=== PATIENT | male | born 1960 | race African-American/Black ===

== ENCOUNTER 2017-12-08 15:50 | Emergency (ER) | payer MEDICARE ==
[2017-12-08] MEDS ORDERED: ASPIRIN 81 MG TABLET, CHEWABLE PO ONE (16:15)
--- NOTE | 2017-12-08 16:18 | ER Document Report ---
ED Medical Screen (RME) - General Chief Complaint: Flank Pain Stated Complaint: BACK PAIN Time Seen by Provider: 12/08/17 16:08 TRAVEL OUTSIDE OF THE [place] IN LAST 30 DAYS: No - HPI Patient complains to provider of: Chest pain Onset: Other - 49-year-old male with multiple medical comorbidities including hyperlipidemia hypertension diabetes a presents for evaluation of exertional left-sided chest pain while he was clearing trees. He notes that during that time he had intense pain, the pain has waxed and waned since that time but gets better with rest. He is never had anything like this in the past except for 3 years ago when he was told that he had an effusion in his chest as well as double pneumonia. - Related Data Allergies/Adverse Reactions: No Known Allergies Allergy (Unverified 12/08/17 15:53) Past Medical History - Social History Chew tobacco use (# tins/day): No Frequency of alcohol use: None Drug Abuse: None - Past Medical History Cardiac Medical History: Reports: Hx Hypercholesterolemia, Hx Hypertension Endocrine Medical History: Reports: Hx Diabetes Mellitus Type 2 Renal/ Medical History: Denies: Hx Peritoneal Dialysis Physical Exam - Vital signs Vitals: Temp Pulse Resp BP Pulse Ox 97.7 F 85 18 126/74 H 100 12/08/17 15:56 12/08/17 15:56 12/08/17 15:56 12/08/17 15:56 12/08/17 15:56 Course - Re-evaluation Re-evalutation: 12/08/17 16:17 This is a gentleman with multiple medical comorbidities and exertional chest pain on the left side. Given the concern for potential developing anginal equivalent or cardiac etiology will initiate cardiac workup. We will obtain 2 view chest x-ray. We will plan for monitoring and further investigation.I performed a rapid medical screening examination on this patient will defer further disposition determination workup and labs to next provider. - Vital Signs Vital signs: Temp Pulse Resp BP Pulse Ox 97.7 F 85 18 126/74 H 100 12/08/17 15:56 12/08/17 15:56 12/08/17 15:56 12/08/17 15:56 12/08/17 15:56
[2017-12-08 16:44] LABS: ABSOLUTE LYMPHOCYTES (AUTO) 2.6 10^3/uL (0.5-4.7); ABSOLUTE MONOCYTES (AUTO) 0.4 10^3/uL (0.1-1.4); ABSOLUTE NEUT (AUTO) 3.9 10^3/uL (1.7-8.2); BASOPHILS % (AUTO) 0.4 % (0-2); EOSINOPHILS % (AUTO) 0.7 % (0-6); HEMOGLOBIN 15.4 g/dL (13.5-17.0); LYMPHOCYTES % (AUTO) 37.7 % (13-45); MEAN CORPUSCULAR HEMOGLOBIN 31.6 pg (27.0-33.4); MEAN CORPUSCULAR HGB CONC 34.3 g/dL (32.0-36.0); MEAN CORPUSCULAR VOLUME 92 fl (80-97); MONOCYTES % (AUTO) 6.1 % (3-13); PLATELET COUNT 231 10^3/uL (150-450); RED BLOOD COUNT 4.89 10^6/uL (4.35-5.55); RED CELL DISTRIBUTION WIDTH 13.1 % (11.5-14.0); SEGMENTED NEUTROPHILS % (AUTO) 55.1 % (42-78); TOTAL CELLS COUNTED % (AUTO) 100 %
[2017-12-08 16:59] LABS: ALANINE AMINOTRANSFERASE 63 U/L (21-72); ALBUMIN 4.5 g/dL (3.5-5.0); ALKALINE PHOSPHATASE 63 U/L (38-126); ANION GAP 10 (5-19); ASPARTATE AMINO TRANSFERASE 56 U/L (17-59); BILIRUBIN,DIRECT 0.3 mg/dL (0.0-0.4); BILIRUBIN,TOTAL 0.6 mg/dL (0.2-1.3); BLOOD UREA NITROGEN 15 mg/dL (7-20); CALCIUM 10.3 mg/dL (8.4-10.2); CARBON DIOXIDE 29 mmol/L (22-30); CHLORIDE 102 mmol/L (98-107); CREATINE KINASE 297 U/L (55-170); GLUCOSE 104 mg/dL (75-110); POTASSIUM 4.4 mmol/L (3.6-5.0); SODIUM 140.8 mmol/L (137-145); TOTAL PROTEIN 7.7 g/dL (6.3-8.2)
[2017-12-08 17:08] LABS: CREATINE KINASE MB 1.39 ng/mL (<4.55)
[2017-12-08 17:09] LABS: TROPONIN I < 0.012 ng/mL
--- NOTE | 2017-12-08 17:19 | RADIOLOGY REPORT (SQ) ---
EXAM DESCRIPTION: CHEST 2 VIEWS COMPLETED DATE/TIME: 12/08/2017 4:58 pm REASON FOR STUDY: pain in left chest COMPARISON: None. EXAM PARAMETERS: NUMBER OF VIEWS: two views TECHNIQUE: Digital Frontal and Lateral radiographic views of the chest acquired. RADIATION DOSE: NA LIMITATIONS: none FINDINGS: LUNGS AND PLEURA: Density projected over the right 1st rib probably represents calcificati on at the costochondral junction however no previous chest x-rays for comparison. Recommend apical l ordotic view for confirmation. Lungs otherwise clear. MEDIASTINUM AND HILAR STRUCTURES: No masses or contour abnormalities. HEART AND VASCULAR STRUCTURES: Heart normal size. No evidence for failure. BONES: No acute findings. HARDWARE: None in the chest. OTHER: No other significant finding. IMPRESSION: Right upper lobe density. See above discussion. Recommend apical lordotic projection. TECHNICAL DOCUMENTATION: JOB ID: [id number] [employer]- All Rights Reserved Reading location - IP/workstation name: [email or web address]
[2017-12-08 17:34] LABS: APPEARANCE,URINE SLIGHTLY-CLOUDY; BILIRUBIN,URINE NEGATIVE (NEGATIVE); CALCIUM OXALATE CRYSTALS,URINE RARE /HPF; COLOR,URINE YELLOW; GLUCOSE, URINE NEGATIVE (NEGATIVE); KETONES,URINE NEGATIVE (NEGATIVE); LEUKOCYTE ESTERASE,URINE NEGATIVE (NEGATIVE); NITRITE,URINE NEGATIVE (NEGATIVE); PROTEIN,URINE NEGATIVE (NEGATIVE); URINE SPECIFIC GRAVITY 1.025
[2017-12-08] MEDS ORDERED: NORMAL SALINE 1000 ML 1,000 ML IV ONE (17:41)
[2017-12-08] MEDS ORDERED: KETOROLAC TROMETHAMINE INJ/PF 30 MG/1 ML SDV IV ONE (17:41)
--- NOTE | 2017-12-08 18:11 | RADIOLOGY REPORT (SQ) ---
EXAM DESCRIPTION: CT ABD/PELVIS NO ORAL OR IV COMPLETED DATE/TIME: 12/08/2017 5:58 pm REASON FOR STUDY: left flank pain COMPARISON: None. TECHNIQUE: CT scan of the abdomen and pelvis performed without intravenous or oral contrast. Images reviewed with lung, soft tissue, and bone windows. Reconstructed coronal and sagittal MPR images revi ewed. All images stored on PACS. All CT scanners at this facility use dose modulation, iterative reconstruction, and/or weight based d osing when appropriate to reduce radiation dose to as low as reasonably achievable (ALARA). [facility]: Dose Right [facility]: CareDose [facility]: Dose Right [facility]: Teradose 4D [facility]: Smart DataProm RADIATION DOSE: CT Rad equipment meets quality standard of care and radiation dose reduction techniq ues were employed. CTDIvol: 19.9 mGy. DLP: 1125 mGy-cm.mGy. LIMITATIONS: None. FINDINGS: LOWER CHEST: No significant findings. No nodules or infiltrates. NON-CONTRASTED LIVER, SPLEEN, ADRENALS: Evaluation limited by lack of IV contrast. No identified sign ificant masses. PANCREAS: No masses. No peripancreatic inflammatory changes. GALLBLADDER: No identified stones by CT criteria. No inflammatory changes to suggest cholecystitis. RIGHT KIDNEY AND URETER: No suspicious masses. Assessment limited by lack of IV contrast. No signif icant calcifications. No hydronephrosis or hydroureter. LEFT KIDNEY AND URETER: No suspicious masses. Assessment limited by lack of IV contrast. There is a tiny nonobstructing lower calyceal calculus. No hydronephrosis or hydroureter. AORTA AND RETROPERITONEUM: No aneurysm. No retroperitoneal masses or adenopathy. BOWEL AND PERITONEAL CAVITY: Descending and sigmoid diverticulosis with no acute inflammation. No danielle wel masses. APPENDIX: Normal. PELVIS, BLADDER, AND ABDOMINAL WALL:No abnormal masses. No free fluid. Bladder normal. BONES: No significant findings. OTHER: No other significant finding. IMPRESSION: Small nonobstructing left lower calyceal calculus. Diverticulosis coli. No acute findi ngs in the abdomen or pelvis. COMMENT: Quality ID # [id number]: Final reports with documentation of one or more dose reduction techniques (e.g., Automated exposure control, adjustment of the mA and/or kV according to patient size, use of iterative reconstruction technique) TECHNICAL DOCUMENTATION: JOB ID: [id number]- All Rights Reserved Reading location - IP/workstation name: [email or web address]
--- NOTE | 2017-12-08 18:16 | EKG REPORT ---
SEVERITY:- NORMAL ECG - SINUS RHYTHM : Confirmed by: Marianna Espino MD 08-Dec-2017 18:16:26
[2017-12-08] MEDS ORDERED: HYDROCODONE/ACETAMINOPHEN 5-325 MG (6 TAB/ER DISP) PO PRN (18:21)
--- NOTE | 2017-12-08 18:22 | ER Document Report ---
ED General - General Chief Complaint: Flank Pain Stated Complaint: BACK PAIN Time Seen by Provider: 12/08/17 16:08 Notes: Patient is a 57-year-old male that presents to the emergency department for chief complaint of left flank pain. Patient states that this pain started yesterday and seem to get worse on and off throughout the day today, so he decided come to the emergency department to have this evaluated. He is concerned that may be developed pneumonia, which has presented similar in the past. Pain is worse with a deep breath, and located in the left flank and radiates towards the front. He denies noting any ears, chills, anterior chest pain, shortness of breath, difficulty breathing, but admits to having some nausea but no vomiting. Denies having any dysuria or hematuria. He currently rates his pain as a 5 out of 10, sharp in nature, and will come and go at times and get worse in intensity. 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 REVIEW OF SYSTEMS: Unless otherwise stated in this report the patient's positive and negative responses for review of systems for constitutional, eyes, ENT, cardiovascular, respiratory, gastrointestinal, neurological, genitourinary, musculoskeletal, and integumentary systems and related systems to the presenting problem are either as stated in the HPI or were not pertinent or were negative for the symptoms and/or complaints related to the presenting medical problem. PHYSICAL EXAMINATION: Vital signs reviewed, nursing noted reviewed. GENERAL: Well-appearing, well-nourished and in no acute distress. HEAD: Atraumatic, normocephalic. EYES: Eyes appear normal, extraocular movements intact, sclera anicteric, conjunctiva are normal. ENT: nares patent, oropharynx clear without exudates. Moist mucous membranes. NECK: Normal range of motion, supple without lymphadenopathy LUNGS: Breath sounds clear to auscultation bilaterally and equal. No wheezes rales or rhonchi. No chest wall tenderness HEART: Regular rate and rhythm without murmurs ABDOMEN: Soft, no anterior abdominal tenderness, left flank tenderness and CVA tenderness with palpation, normoactive bowel sounds. No rebound, guarding, or rigidity. No masses appreciated. EXTREMITIES: Nontender, good range of motion, no pitting or edema. NEUROLOGICAL: No focal neurological deficits. Moves all extremities spontaneously Motor and sensory grossly intact on exam. PSYCH: Normal mood, normal affect. SKIN: Warm, Dry, normal turgor, no rashes or lesions noted on exposed skin TRAVEL OUTSIDE OF THE [place] IN LAST 30 DAYS: No - Related Data Allergies/Adverse Reactions: No Known Allergies Allergy (Unverified 12/08/17 15:53) Past Medical History - Social History Smoking Status: Never Smoker Chew tobacco use (# tins/day): No Frequency of alcohol use: None Drug Abuse: None Family History: Reviewed & Not Pertinent Patient has suicidal ideation: No Patient has homicidal ideation: No - Past Medical History Cardiac Medical History: Reports: Hx Hypercholesterolemia, Hx Hypertension Endocrine Medical History: Reports: Hx Diabetes Mellitus Type 2 Renal/ Medical History: Denies: Hx Peritoneal Dialysis Physical Exam - Vital signs Vitals: Temp Pulse Resp BP Pulse Ox 97.7 F 85 18 126/74 H 100 12/08/17 15:56 12/08/17 15:56 12/08/17 15:56 12/08/17 15:56 12/08/17 15:56 Course - Re-evaluation Re-evalutation: Patient seen and examined vital signs reviewed. Laboratory data and imaging were ordered as appropriate for the patient's presenting symptoms and complaint, with consideration of any critical or life threatening conditions that may be associated with their obtained history and exam as noted above. Patient was treated with IV fluids, Toradol Results were reviewed when available and demonstrated calcium oxalate crystals in his urine, the rest of his blood work is unremarkable, negative troponin, chest x-ray demonstrated a possible calcification in his right upper lung, patient given a copy of this chest x-ray and advised to follow-up for repeat in the future, because the calcium oxalate crystals, I did order CT of the abdomen and pelvis without contrast abdomen, that demonstrated a small stone in the left renal calyx The patient was re-evaluated and was improved after the Toradol Evaluation was most consistent with renal colic, possibly related to the small stone, or a recently passed stone that was too small to notice, will discharge the patient home on Flomax, given a [place] 5 mg / 325 mg 6 doses, for breakthrough pain, given prescription for naproxen, advised follow-up with his primary care, and if needed to follow-up with urology, he is advised if his symptoms worsen to return. Results were discussed with the patient at this point, after careful consideration I feel that that patient can be discharged from the emergency department, the patient was educated treatments and reasons to return to the emergency department based on their presumed diagnosis as noted above, they were advised to followup with a primary care physician in 2-3 days. Patient was agreeable to plan of care. *Note is created using voice recognition software and may contain spelling, syntax or grammatical errors. Laboratory 12/08/17 12/08/17 12/08/17 16:32 16:32 16:32 WBC 7.0 RBC 4.89 Hgb 15.4 Hct 45.0 MCV 92 MCH 31.6 MCHC 34.3 RDW 13.1 Plt Count 231 Seg Neutrophils % 55.1 Lymphocytes % 37.7 Monocytes % 6.1 Eosinophils % 0.7 Basophils % 0.4 Absolute Neutrophils 3.9 Absolute Lymphocytes 2.6 Absolute Monocytes 0.4 Absolute Eosinophils 0.0 Absolute Basophils 0.0 Sodium 140.8 Potassium 4.4 Chloride 102 Carbon Dioxide 29 Anion Gap 10 BUN 15 Creatinine 1.22 Est GFR ( Amer) > 60 Est GFR (Non-Af Amer) > 60 Glucose 104 Calcium 10.3 H Total Bilirubin 0.6 Direct Bilirubin 0.3 Neonat Total Bilirubin Not Reportable Neonat Direct Bilirubin Not Reportable Neonat Indirect Bili Not Reportable AST 56 ALT 63 Alkaline Phosphatase 63 Creatine Kinase 297 H CK-MB (CK-2) 1.39 Troponin I < 0.012 Total Protein 7.7 Albumin 4.5 Urine Color Urine Appearance Urine pH Ur Specific [place] Urine Protein Urine Glucose (UA) Urine Ketones Urine Blood Urine Nitrite Urine Bilirubin Urine Urobilinogen Ur Leukocyte Esterase Urine WBC (Auto) Urine RBC (Auto) U Hyaline Cast (Auto) Squamous Epi Cells Auto Calcium Oxalate Cr Auto Urine Mucus (Auto) Urine Ascorbic Acid 12/08/17 17:15 WBC RBC Hgb Hct MCV MCH MCHC RDW Plt Count Seg Neutrophils % Lymphocytes % Monocytes % Eosinophils % Basophils % Absolute Neutrophils Absolute Lymphocytes Absolute Monocytes Absolute Eosinophils Absolute Basophils Sodium Potassium Chloride Carbon Dioxide Anion Gap BUN Creatinine Est GFR ( Amer) Est GFR (Non-Af Amer) Glucose Calcium Total Bilirubin Direct Bilirubin Neonat Total Bilirubin Neonat Direct Bilirubin Neonat Indirect Bili AST ALT Alkaline Phosphatase Creatine Kinase CK-MB (CK-2) Troponin I Total Protein Albumin Urine Color YELLOW Urine Appearance SLIGHTLY-CLOUDY Urine pH 5.0 Ur Specific [place] 1.025 Urine Protein NEGATIVE Urine Glucose (UA) NEGATIVE Urine Ketones NEGATIVE Urine Blood NEGATIVE Urine Nitrite NEGATIVE Urine Bilirubin NEGATIVE Urine Urobilinogen 2.0 H Ur Leukocyte Esterase NEGATIVE Urine WBC (Auto) 1 Urine RBC (Auto) 64 U Hyaline Cast (Auto) 1 Squamous Epi Cells Auto <1 Calcium Oxalate Cr Auto RARE Urine Mucus (Auto) OCC Urine Ascorbic Acid NEGATIVE Chest X-Ray 12/08/17 16:15 IMPRESSION: Right upper lobe density. See above discussion. Recommend apical lordotic projection. Abdomen/Pelvis CT 12/08/17 17:37 IMPRESSION: Small nonobstructing left lower calyceal calculus. Diverticulosis coli. No acute findings in the abdomen or pelvis. - Vital Signs Vital signs: Temp Pulse Resp BP Pulse Ox 97.7 F 85 16 117/77 93 12/08/17 15:56 12/08/17 15:56 12/08/17 17:25 12/08/17 17:25 12/08/17 17:25 - Laboratory Result Diagrams: 12/08/17 16:32 12/08/17 16:32 Laboratory results interpreted by me: 12/08/17 12/08/17 16:32 17:15 Calcium 10.3 H Creatine Kinase 297 H Urine Urobilinogen 2.0 H - EKG Interpretation by Me Additional EKG results interpreted by me: EKG demonstrates normal sinus rhythm with a ventricular rate of 88 bpm, normal axis, normal intervals, no evidence of acute ischemia on this EKG, no prior for comparison. Discharge - Discharge Clinical Impression: Renal colic, Left flank pain Condition: Stable Disposition: HOME, SELF-CARE Additional Instructions: Please return to the emergency department if you have any worsening, or concern of your symptoms. Please return to the emergency department if you develop chest pain, difficulty breathing, severe abdominal pain, or ongoing vomiting. Please follow-up with your primary care physician in 2-3 days and any other recommended physicians. If prescribed, take all medications as directed. If you have any questions or concerns do not hesitate to return the emergency department for evaluation. PLEASE FOLLOW-UP WITH DR. Moore REGARDING THE CHEST XRAY, YOU HAVE BEEN PROVIDED A COPY, FOR REPEAT CXR IN THE NEXT 3-6 MONTHS. Prescriptions: Naproxen 500 mg PO Q12H #30 tablet Tamsulosin HCl [Flomax] 0.4 mg PO DAILY #7 cap.er.24h Referrals: CONSTANCE CLARK MD [Primary Care Provider] - Follow up in 3-5 days
[2017-12-08 18:59] VITALS: BP 130/81
== END 2017-12-08 19:12 | disposition home or self-care (01) ==
LOC: ER 15:50
DX: N23 Unspecified renal colic (principal); R10.9 Unspecified abdominal pain; E78.00 Pure hypercholesterolemia, unspecified; I10 Essential (primary) hypertension; E11.9 Type 2 diabetes mellitus without complications
CPT/HCPCS: 93005; 99285; 96361; 96374; 36415; 82553; 82550; 85025; 80053; 81001; 84484; 71046; 74176; 93010; A9270 ×2; J1885; J7030

== ENCOUNTER → 2018-04-11 | Outpatient (CLI) | payer MEDICARE ==
--- NOTE | 2018-04-11 16:03 | RADIOLOGY REPORT (SQ) ---
EXAM DESCRIPTION: CHEST 2 VIEWS COMPLETED DATE/TIME: 04/11/2018 3:31 pm REASON FOR STUDY: R05 COUGH COMPARISON: 12/08/2017 EXAM PARAMETERS: NUMBER OF VIEWS: two views TECHNIQUE: Digital Frontal and Lateral radiographic views of the chest acquired. RADIATION DOSE: NA LIMITATIONS: none FINDINGS: LUNGS AND PLEURA: No opacities, masses or pneumothorax. No pleural effusion. MEDIASTINUM AND HILAR STRUCTURES: No masses or contour abnormalities. HEART AND VASCULAR STRUCTURES: Heart normal size. No evidence for failure. BONES: No acute findings. HARDWARE: None in the chest. OTHER: No other significant finding. IMPRESSION: 1. NO ACUTE RADIOGRAPHIC FINDING IN THE CHEST. TECHNICAL DOCUMENTATION: JOB ID: [id number] [employer]- All Rights Reserved Reading location - IP/workstation name: [email or web address]
== END ==
LOC: RAD 14:52
PROVIDERS: ATTEND Internal Medicine
DX: R05 Cough (principal)
CPT/HCPCS: 71046